=== PATIENT | male | born 1955 | race Caucasian/White ===

== ENCOUNTER 2020-02-08 12:36 | Outpatient (REF) | payer MEDICARE, SELFPAY ==
--- NOTE | 2020-02-08 | US_ITS ---
EXAMINATION: US EXTRACRANIAL CAROTID DUPLEX, BILATERAL CLINICAL INFORMATION: CVA COMPARISON: Previous carotid ultrasound July 2019, MRA of the neck July 2019 and CTA of the neck August 2019 TECHNIQUE: Real-time ultrasound and Doppler techniques (integrating B-mode 2-D vascular images, Doppler spectral analysis and color-flow Doppler imaging) were utilized to interrogate the extracranial carotid arteries, the vertebral arteries and proximal subclavian arteries bilaterally. The degree of stenosis is determined by criteria similar to NASCET. FINDINGS: Right Side: 1. There is mild to moderate atherosclerotic plaque seen in the bifurcation/proximal ICA region. 2. The common carotid artery PSV proximally is 127 cm/s and distally 72 cm/s. 3. The proximal internal carotid artery velocities are 104 cm/s systolic and 26 cm/s diastolic. 4. The proximal external carotid artery PSV is 175 cm/s. 5. The vertebral artery shows antegrade flow. 6. The subclavian artery waveforms are normal. Left Side: 1. There is severe atherosclerotic plaque seen in the bifurcation/proximal ICA region. 2. The common carotid artery PSV proximally is 132 cm/s and distally 74 cm/s. 3. The left ICA is occluded. 4. The proximal external carotid artery PSV is 155 cm/s with internalization or preserved diastolic flow. 5. The vertebral artery shows antegrade flow. 6. The subclavian artery waveforms are normal. US/US carotid duplex BI IMPRESSION: 1. RIGHT: Mild to moderate atherosclerotic plaque. 0-49% right ICA stenosis. 2. LEFT: Severe atherosclerotic plaque. The left ICA is occluded. 3. There is no change in the category severity of disease when compared to the previous study dated July and August 2019.
== END 2020-02-08 12:37 | disposition home or self-care (01) ==
LOC: HO.HMGCX 12:36
PROVIDERS: PCP Internal Medicine; Visit Provider Surgery Vascular Surgery
DX: Z86.73 Personal history of transient ischemic attack (TIA), and cerebral infarction without residual deficits (principal)
CPT/HCPCS: 93880

== ENCOUNTER → 2020-02-29 10:33 | Outpatient (BNVA) | payer MEDICARE, SELFPAY | PROVIDERS: PCP Internal Medicine; Visit Provider Surgery Vascular Surgery | DX: I65.23 Occlusion and stenosis of bilateral carotid arteries (principal) | CPT/HCPCS: Q3014 ==

== ENCOUNTER → 2020-06-21 20:16 | Outpatient (REF) | payer MEDICARE, SELFPAY | LOC: HO.SL 20:16 | PROVIDERS: PCP Internal Medicine; Visit Provider Internal Medicine | DX: G47.30 Sleep apnea, unspecified (principal) | CPT/HCPCS: 95811 ==

== ENCOUNTER 2020-06-22 06:13 | Emergency (ER) | payer MEDICARE, SELFPAY ==
[2020-06-22 07:47] VITALS: BP 138/76; PULSE 72; RESP 16; TEMP 37.1; O2SAT 98; BMI 27.3
[2020-06-22 08:54] VITALS: BP 134/78; PULSE 72; RESP 17; TEMP 36.6; O2SAT 98
[2020-06-22] MEDS: Lidocaine HCl 1 % MPF 5 ML VIAL INFILTRATI ×2 (09:05)
[2020-06-22] MEDS: Diphth,Pertus(ACell),Tet Adult 0.5 ML SYRINGE IM (09:08)
--- NOTE | 2020-06-22 09:09 | ED.SKABFB ---
HPI - Skin/Abscess/Foreign Bdy General Chief complaint: Skin/Abscess/Foreign Body Stated complaint: Finger infection Time Seen by Provider: 06/22/20 06:48 Source: patient Mode of arrival: ambulatory Limitations: no limitations History of Present Illness HPI narrative: 65-year-old male who presents emergency department for evaluation of a right index finger paronychial abscess. The patient states that he accidentally pricked his finger with a thorn from a peter harp. This occurred approximately 1 week prior pain. He states that he has gradually developed increased pain and swelling of the right index finger. He states that the tip of his index finger is slightly swollen as well and is painful. He denied any systemic symptoms such as fever, chills, nausea, vomiting, weakness or fatigue. The patient does not know when his last tetanus shot was given. Related Data Home Medications Medication Instructions Recorded Confirmed aspirin 81 mg tablet,delayed 81 mg PO DAILY 02/14/20 02/14/20 release atorvastatin 80 mg tablet 80 mg PO DAILY 02/14/20 02/14/20 clopidogrel 75 mg tablet 75 mg PO DAILY 02/14/20 02/14/20 flu vacc [id number](65yr up)-PF 240 IM 02/14/20 02/14/20 mcg/0.7 mL intramuscular syringe lisinopril 20 1 tab PO DAILY 02/14/20 02/14/20 mg-hydrochlorothiazide 25 mg tablet multivitamin 1 tab PO DAILY 02/14/20 02/14/20 omeprazole 40 mg capsule,delayed 40 mg PO BID 02/14/20 02/14/20 release turmeric 400 mg capsule mg PO 02/14/20 02/14/20 Previous Rx's Medication Instructions Recorded lisinopril 20 mg tablet 20 mg PO DAILY #90 tab 01/03/20 ammonium lactate 5 % lotion 1 appl TOPICAL BID #226 g 02/14/20 amlodipine 10 mg tablet 10 mg PO DAILY #90 tab 03/06/20 cephalexin 500 mg PO QID #20 tab 06/22/20 Allergies Allergy/AdvReac Type Severity Reaction Status Date / Time amoxicillin [AMOXICILLIN] Allergy Unknown RASH Verified 02/29/20 10:36 Review of Systems Review of Systems: Yes all other systems are reviewed and are negative PMFSH Past Medical History Source: unable to obtain Medical History Barretts esophagus CVA (cerebral vascular accident) Encounter for screening for lung cancer ETOH abuse GERD (gastroesophageal reflux disease) HTN (hypertension) Hyperlipemia Normal colonoscopy Sleep apnea TIA (transient ischemic attack) Tobacco consumption Surgical History No pertinent past surgical history Family History Family History Father No problems noted. Mother No problems noted. Social History Social History Alcohol intake: never Smoking Status: Current every day smoker Tobacco Type: Pipe Advance Directives: No Physical Exam Vital Signs: Vital Signs: Last Vital Signs Temp 97.9 F 06/22/20 08:54 Pulse 72 06/22/20 08:54 Resp 17 06/22/20 08:54 BP 134/78 06/22/20 08:54 Pulse Ox 98 06/22/20 08:54 Body Mass Index 27.3 Const: General: cooperative and healthy appearing Nutritional Appearance: well nourished Orientation/consciousness: oriented to person Limitations: no limitations HENMT: Head: Yes normal to inspection Skin: Other: The patient has a paronychia sitting all abscess of the right index finger with increased swelling to the radial aspect of the paronychia him, the swelling is flocculent, the overlying skin is erythematous and warm to the touch, his fingers neurovascularly intact. Neuro: General: oriented to person Course Course Course Narrative: 65-year-old male who presents emergency department for evaluation of apparent abscess to his right index finger. The abscess was incised, drained and packed by me. The patient was given a Tdap vaccination IM here in the emergency department. Wound culture was obtained. Patient was started on Keflex 500 mg 4 times a day for 5 days. He was given printed and verbal instructions and discharged home. Procedures Procedure Narrative Procedure Narrative: Procedure: Incision, drainage and packing, right index finger paronychial abscess I discussed the procedure with the patient and he did give me informed verbal consent. The right index finger was prepped with Betadine. The right index finger was anesthetized using 1% lidocaine digital block, 8 cc of lidocaine was injected. Using a 11, I incised the abscess and approximately 1 cc of green purulent material was expressed from the incision. The abscess pocket was explored with a hemostat, no foreign bodies were found, adhesions within the pocket were broken down with a hemostat. The abscess pocket was packed with quarter-inch iodoform gauze. A wound culture was obtained. The wound was dressed with sterile gauze and a Kerlix. The patient tolerated the procedure well. Discharge Plan Discharge Clinical Impression: Paronychia of finger of right hand, Encounter for incision and drainage procedure Patient Disposition: Home, Self-Care Instructions: Abscess Incision and Drainage (DC) Additional Instructions: You had an abscess around your nail. I incised, drained and packed the wound. Leave the gauze dressing on for 24 hours. After 24 hours remove the gauze dressing and remove the pack which is in the wound. The packing looks like a thick piece of string that you can just pull out. After you remove the dressing, apply bacitracin to the wound and the wound covered with a gauze dressing. Take Keflex (cephalexin) 500 mg pills, 1 pill 4 times a day for 5 days. Take Tylenol (acetaminophen) 500 mg pills, 2 pills every 4 to 6 hours as needed for pain. Follow-up with your doctor in 2 days. Please return to the emergency department if your symptoms get worse or if you develop any symptoms that are concerning to you. Prescriptions: New cephalexin 500 mg tablet 500 mg PO QID Qty: 20 RF: 0 No Action lisinopril 20 mg tablet 20 mg PO DAILY Qty: 90 RF: 3 amlodipine 10 mg tablet 10 mg PO DAILY Qty: 90 RF: 3 atorvastatin 80 mg tablet 80 mg PO DAILY RF: 0 clopidogrel 75 mg tablet 75 mg PO DAILY RF: 0 Fluzone HighDose Quad 20-21 PF 240 mcg/0.7 mL syringe IM RF: 0 omeprazole 40 mg capsule,delayed release(DR/EC) 40 mg PO BID RF: 0 lisinopril-hydrochlorothiazide 20-25 mg tablet 1 tab PO DAILY RF: 0 aspirin 81 mg tablet,delayed release (DR/EC) 81 mg PO DAILY RF: 0 turmeric 400 mg capsule PO RF: 0 multivitamin Tablet 1 tab PO DAILY RF: 0 Lac-Hydrin Five 5 % lotion 1 appl topical BID Qty: 226 RF: 2
== END 2020-06-22 09:36 | disposition home or self-care (01) ==
PROVIDERS: Emergency Provider Emergency Medicine Emergency Medical Services; PCP Internal Medicine
DX: L03.011 Cellulitis of right finger (principal); L02.511 Cutaneous abscess of right hand; F17.200 Nicotine dependence, unspecified, uncomplicated; Z71.6 Tobacco abuse counseling; Z79.899 Other long term (current) drug therapy
CPT/HCPCS: 26010; 87071; 87077; 87186; 87205; 90471; 90715; 99283; 99284

== ENCOUNTER 2020-12-27 06:29 | Outpatient (REF) | payer MEDICARE, SELFPAY ==
[2020-12-27 11:32] LABS: Appearance Urine CLEAR; Color Urine YELLOW; Glucose Urine UA NEG (NEG); Leukocyte Esterase Urine NEG (NEG); Nitrite Urine NEG (NEG); Urine Blood NEG (NEG); Urine Ketones NEG (NEG); Urine Protein NEG (NEG-TRACE)
[2020-12-27 11:44] LABS: RBC Urine 0-2 /HPF (0); Squamous Epithelial Cell Urine TRACE /LPF; WBC Urine 0-2 /HPF (0-4)
[2020-12-27 11:55] LABS: Hematocrit 43.8 % (42-52); Hemoglobin 14.4 g/dl (14.0-18.0); Mean Corpuscular HGB Conc 32.9 g/dl (31.0-36.0); Mean Corpuscular Hemoglobin 32.8 pg (27.0-33.0); Mean Corpuscular Volume 99.8 fL (80-98); Mean Platelet Volume 11.8 fL (9.4-12.4); Platelet Count 264 X10*3/uL (160-400); Red Blood Count 4.39 X10*6/uL (4.60-5.80); Red Cell Distribution Width 12.3 % (11.0-16.0)
[2020-12-27 12:06] LABS: Alanine Aminotransferase 34 U/L (0-40); Alkaline Phosphatase 95 U/L (39-117); Anion Gap 13 (12-20); Aspartate Amino Transferase 27 U/L (5-37); Blood Urea Nitrogen 16 mg/dL (9-16); Calcium 9.5 mg/dL (8.4-10.2); Carbon Dioxide 28 mmol/L (22-29); Chloride 105 mmol/L (96-108); Cholesterol 124 mg/dL; Estimated Glomerular Filt Rate > 60; Glucose Fasting 90 mg/dL (60-99); HDL Cholesterol 33 mg/dL; LDL Cholesterol Calculated 75 mg/dl; Potassium 4.1 mmol/L (3.3-5.1); Sodium 142 mmol/L (135-145); Total Protein 6.8 g/dL (6.5-8.0); Triglycerides 80 mg/dL
[2020-12-27 12:15] LABS: Prostate Specific Antigen Scr 0.27 ng/mL (<0.05-4.0)
== END 2020-12-27 06:30 | disposition home or self-care (01) ==
LOC: HO.HMGCLDS 06:29
PROVIDERS: PCP Internal Medicine; Visit Provider Internal Medicine
DX: G45.9 Transient cerebral ischemic attack, unspecified (principal); G47.30 Sleep apnea, unspecified; I10 Essential (primary) hypertension; E78.5 Hyperlipidemia, unspecified
CPT/HCPCS: 36415; 80053; 80061; 81001; 84153; 85027

== ENCOUNTER 2021-02-14 14:00 | Outpatient (RCR) | payer MEDICARE, SELFPAY ==
--- NOTE | 2021-01-22 17:19 | MHC.PT.EP ---
[facility] [place] Office [place] Office [place] Office [address] [phone] F: [phone] F: [phone] F: [phone] F: [phone] Physical Therapy Plan of Care Date of Evaluation: Date of Surgery: Diagnosis: L shoulder pain. Assessment: Pt is a 66 y/o male referred to PT for PT for L shoulder pain who presents with L shoulder dysfunction resulting in decreased tolerance and ability for reaching high shelves, reaching his back for hygiene and dressing, as well as fine motor activities secondary to increased L UE tone, decreased L UE sensation, decreased L UE ROM and strength, and pain. Pt is deemed an appropriate candidate to receive skilled PT in order to address his physical limitations to improve his functional ability. Frequency and Duration: The patient will be seen 1 x / wk x 5 wks. Short Term Goals: Initiate HEP. 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 Pt will be able to place objects on high shelf with L UE with managed Sx. Pt will be able to reach his back for hygiene and dressing. Pt will improve his L shoulder functional IR to at least L1, initial: inferior sacrum. Treatment Plan: Modalities to reduce pain, spasms and effusion. Manual therapy to restore motion and function. Therapeutic exercise to improve strength and flexibility. Neuromuscular re-education for posture and balance. Therapeutic activities to return to functional activities of daily living. Electronically signed by: Nick Melgar PT. Please sign and return to therapist. Thank you for your referral.
--- NOTE | 2021-02-14 15:38 | MHC.PT.DC ---
[facility] [place] Office [place] Office [place] Office [address] Zhane Swan [address] [phone] F: [phone] F: [phone] F: [phone] F: [phone] Physical Therapy Discharge Report Diagnosis: L shoulder pain. Date of Surgery: Date of Evaluation: 01/22/21 Date of Discharge: 02/14/21 Treatments to Date: 3 Cancellations to Date: No Shows to Date: Discharge Status: Achieved Goals Improved Function Independent with HEP Discharge Summary: Nicholas has been an active participant in his therapy in and out of the clinic and is requesting DC today as he reports with his new exercises he has already met his goals and has self management ideas to continue and is motivated for gym activity. Electronically signed by: Nick Melgar PT. Please sign and return to therapist. Thank you for your referral.
== END 2021-02-14 15:38 | disposition home or self-care (01) ==
LOC: HO.PTCHIC 14:00
PROVIDERS: PCP Internal Medicine; Visit Provider Internal Medicine
DX: M25.512 Pain in left shoulder (principal)
CPT/HCPCS: 97110; 97112; 97162

== ENCOUNTER 2021-02-19 12:27 | Outpatient (REF) | payer MEDICARE, SELFPAY ==
--- NOTE | ~2021-02-19 | US_ITS ---
EXAMINATION: US EXTRACRANIAL CAROTID DUPLEX, BILATERAL CLINICAL INFORMATION: This is a 66-year-old male with a history of carotid occlusion. CVA. TIA. COMPARISON: Comparison is made to previous study dated 02/08/2020 which demonstrated 0-49% right internal carotid artery stenosis and left internal carotid artery occlusion. TECHNIQUE: Real-time ultrasound and Doppler techniques (integrating B-mode 2-D vascular images, Doppler spectral analysis and color-flow Doppler imaging) were utilized to interrogate the extracranial carotid arteries, the vertebral arteries and proximal subclavian arteries bilaterally. The degree of stenosis is determined by criteria similar to NASCET. FINDINGS: Right Side: 1. There is moderate atherosclerotic plaque seen in the bifurcation/proximal ICA region. 2. The common carotid artery PSV proximally is 175 cm/s and distally 107 cm/s. 3. The proximal internal carotid artery velocities are 127 cm/s systolic and 34 cm/s diastolic. 4. The proximal external carotid artery PSV is 162 cm/s. 5. The vertebral artery shows antegrade flow. 6. The subclavian artery waveforms are stenotic with elevated velocities of 280 cm/s. This appears to have progressed when compared to the previous study dated 02/08/2020. Left Side: 1. There is moderate atherosclerotic plaque seen in the bifurcation/proximal ICA region. 2. The common carotid artery PSV proximally is 120 cm/s and distally 75 cm/s. 3. The proximal internal carotid artery is occluded. 4. The proximal external carotid artery PSV is 164 cm/s. 5. The vertebral artery shows antegrade flow. 6. The subclavian artery waveforms are stenotic with elevated velocities of 231 cm/s. This appears to have progressed when compared to the previous study dated 02/08/2020. An arrhythmia was noted during the ultrasound duplex portion. This would be best evaluated with an EKG. US/US carotid duplex BI IMPRESSION: 1. RIGHT: Moderate, hemodynamically significant stenosis of the proximal right internal carotid artery corresponding to a 50-79% stenosis by velocity criteria. The category severity of disease appears to have progressed when compared to previous examination dated 02/08/2020. 2. LEFT: The left internal carotid artery is occluded. This was seen previously and appears unchanged. 3. There are bilateral subclavian artery stenoses which appear new when compared to the previous study dated 02/08/2020. However, the vertebral arteries remain antegrade bilaterally.
== END 2021-02-19 12:28 | disposition home or self-care (01) ==
LOC: HO.HMGCX 12:27
PROVIDERS: PCP Internal Medicine; Visit Provider Surgery Vascular Surgery
DX: I65.23 Occlusion and stenosis of bilateral carotid arteries (principal)
CPT/HCPCS: 93880

== ENCOUNTER → 2021-02-27 10:30 | Outpatient (BNVA) | payer MEDICARE, SELFPAY | PROVIDERS: PCP Internal Medicine; Visit Provider Surgery Vascular Surgery | DX: I65.23 Occlusion and stenosis of bilateral carotid arteries (principal) | CPT/HCPCS: 99212 ==

== ENCOUNTER 2021-12-19 13:57 | Outpatient (REF) | payer MEDICARE, SELFPAY ==
[2021-12-19 16:53] LABS: Hematocrit 41.4 % (42.0-52.0); Hemoglobin 14.1 g/dl (14.0-18.0); Mean Corpuscular HGB Conc 34.1 g/dl (31.0-36.0); Mean Corpuscular Hemoglobin 33.7 pg (27.0-33.0); Mean Corpuscular Volume 98.8 fL (80.0-98.0); Mean Platelet Volume 10.6 fL (9.4-12.4); Platelet Count 259 X10*3/uL (160-400); Red Blood Count 4.19 X10*6/uL (4.60-5.80); Red Cell Distribution Width 12.3 % (11.0-16.0); White Blood Count 10.9 X10*3/uL (4.8-10.8)
[2021-12-19 17:07] LABS: Alanine Aminotransferase 25 U/L (0-40); Albumin Level 4.2 g/dL (3.5-5.0); Alkaline Phosphatase 100 U/L (39-117); Anion Gap 19 (12-20); Aspartate Amino Transferase 31 U/L (5-37); Bilirubin Total 0.8 mg/dL (0.0-1.0); Blood Urea Nitrogen 24 mg/dL (9-16); Calcium 9.5 mg/dL (8.4-10.2); Carbon Dioxide 24 mmol/L (22-29); Chloride 102 mmol/L (96-108); Cholesterol 139 mg/dL; Estimated Glomerular Filt Rate 49; Glucose Fasting 74 mg/dL (60-99); HDL Cholesterol 40 mg/dL; LDL Cholesterol Calculated 83 mg/dl; Potassium 4.3 mmol/L (3.3-5.1); Sodium 141 mmol/L (135-145); Triglycerides 82 mg/dL
== END 2021-12-19 13:58 | disposition home or self-care (01) ==
LOC: HO.HMGCLDS 13:57
PROVIDERS: PCP Internal Medicine; Visit Provider Internal Medicine
DX: E78.5 Hyperlipidemia, unspecified (principal); I10 Essential (primary) hypertension
CPT/HCPCS: 36415; 80053; 80061; 85027

== ENCOUNTER 2022-01-02 09:25 | Outpatient (REF) | payer MEDICARE, SELFPAY ==
[2022-01-02 11:31] LABS: Appearance Urine Clear; Color Urine Dark Yellow; Glucose Urine UA Negative (Negative); Leukocyte Esterase Urine Negative (Negative); Nitrite Urine Negative (Negative); PH 5.5 (5.0-9.0); Specific Gravity - Urine 1.015 (1.005-1.025); Urine Blood Negative (Negative); Urine Ketones Trace mg/dL (Negative); Urine Protein Negative (Neg-Trace)
[2022-01-02 11:40] LABS: Bacteria Urine None Seen (None Seen); Hyaline Casts Urine 0-2 /LPF (0-2); RBC Urine 0-2 /HPF (0-2); Squamous Epithelial Cell Urine 0-2 /HPF (0-2); WBC Urine 0-5 /HPF (0-5)
[2022-01-02 12:00] LABS: Anion Gap 14 (12-20); Blood Urea Nitrogen 18 mg/dL (9-16); Calcium 9.6 mg/dL (8.4-10.2); Carbon Dioxide 29 mmol/L (22-29); Chloride 103 mmol/L (96-108); Estimated Glomerular Filt Rate 52; Glucose Random 92 mg/dL (60-115); Potassium 4.4 mmol/L (3.3-5.1); Sodium 142 mmol/L (135-145)
== END 2022-01-02 09:26 | disposition home or self-care (01) ==
LOC: HO.HMGCLDS 09:25
PROVIDERS: PCP Internal Medicine; Visit Provider Internal Medicine
DX: E78.5 Hyperlipidemia, unspecified (principal); I10 Essential (primary) hypertension
CPT/HCPCS: 36415; 80048; 81001

== ENCOUNTER 2022-02-14 09:39 | Outpatient (REF) | payer MEDICARE, SELFPAY ==
--- NOTE | ~2022-02-14 | US_ITS ---
EXAMINATION: US EXTRACRANIAL CAROTID DUPLEX, BILATERAL CLINICAL INFORMATION: Left ICA occlusion COMPARISON: Carotid duplex on 02/19/2021 TECHNIQUE: Real-time ultrasound and Doppler techniques (integrating B-mode 2-D vascular images, Doppler spectral analysis and color-flow Doppler imaging) were utilized to interrogate the extracranial carotid arteries, the vertebral arteries and proximal subclavian arteries bilaterally. The degree of stenosis is determined by criteria similar to NASCET. FINDINGS: Right Side: 1. There is mild atherosclerotic plaque seen in the bifurcation/proximal ICA region. 2. The common carotid artery PSV proximally is 123 cm/s and distally 108 cm/s. 3. The proximal internal carotid artery velocities are 117 cm/s systolic and 24 cm/s diastolic. 4. The proximal external carotid artery PSV is 190 cm/s. 5. The vertebral artery shows antegrade flow. 6. The subclavian artery waveforms are normal. Left Side: 1. There is significant atherosclerotic plaque seen in the bifurcation/proximal ICA region. 2. The common carotid artery PSV proximally is 123 cm/s and distally 88 cm/s. 3. The proximal internal carotid artery is occluded. 4. The proximal external carotid artery PSV is 182 cm/s. 5. The vertebral artery shows antegrade flow. 6. The subclavian artery waveforms are normal. US/US carotid duplex BI IMPRESSION: 1. RIGHT: Minimal, non-hemodynamically significant stenosis of the proximal right internal carotid artery corresponding to a 0-49% stenosis by velocity criteria. 2. LEFT: Known occlusion of the left internal carotid artery. 3. There is no change in the category severity of disease of the internal carotid arteries when compared to the previous study dated 02/19/2021. 4. Velocities in the bilateral subclavian arteries are normal on this exam (elevated on the prior exam)
== END 2022-02-14 09:40 | disposition home or self-care (01) ==
LOC: HO.HMGCX 09:39
PROVIDERS: PCP Internal Medicine; Visit Provider Surgery Vascular Surgery
DX: I65.23 Occlusion and stenosis of bilateral carotid arteries (principal)
CPT/HCPCS: 93880

== ENCOUNTER → 2022-02-19 12:58 | Outpatient (BNVA) | payer MEDICARE, SELFPAY | PROVIDERS: PCP Internal Medicine; Visit Provider Surgery Vascular Surgery | DX: I65.23 Occlusion and stenosis of bilateral carotid arteries (principal); M25.512 Pain in left shoulder | CPT/HCPCS: 99212 ==

== ENCOUNTER 2023-02-17 08:43 | Outpatient (REF) | payer MEDICARE, SELFPAY ==
--- NOTE | ~2023-02-17 | US_ITS ---
EXAMINATION: US EXTRACRANIAL CAROTID DUPLEX, BILATERAL CLINICAL INFORMATION: Occlusion and stenosis of bilateral carotid arteries. COMPARISON: Carotid ultrasound 02/14/2022, 02/19/2021, 02/08/2020. TECHNIQUE: Real-time ultrasound and Doppler techniques (integrating B-mode 2-D vascular images, Doppler spectral analysis and color-flow Doppler imaging) were utilized to interrogate the extracranial carotid arteries, the vertebral arteries and proximal subclavian arteries bilaterally. The degree of stenosis is determined by criteria similar to NASCET. FINDINGS: Right Side: 1. There is mild atherosclerotic plaque seen in the bifurcation/proximal ICA region. 2. The common carotid artery PSV proximally is 105 cm/s and distally 105 cm/s. 3. The proximal internal carotid artery velocities are 146 cm/s systolic and 42 cm/s diastolic. 4. The proximal external carotid artery PSV is 156 cm/s. 5. The vertebral artery shows antegrade flow. 6. The subclavian artery waveforms are normal. Left Side: 1. There is severe atherosclerotic plaque seen in the bifurcation/proximal ICA region. 2. The common carotid artery PSV proximally is 113 cm/s and distally 66 cm/s. 3. The internal carotid artery is occluded. 4. The proximal external carotid artery PSV is 143 cm/s. 5. The vertebral artery shows antegrade flow. 6. The subclavian artery waveforms are normal. US/US carotid duplex BI IMPRESSION: 1. RIGHT: Elevated peak systolic velocity of 146 cm/s in the proximal internal carotid artery. In the setting of known contralateral internal carotid artery occlusion and using a threshold of 140 cm/s, this is consistent with a 50-79% stenosis. On the previous exams this velocity has ranged between 104-127 cm/s. 2. LEFT: Chronically occluded.
== END 2023-02-17 08:44 | disposition home or self-care (01) ==
LOC: HO.HMGCX 08:43
PROVIDERS: PCP Internal Medicine; Visit Provider Surgery Vascular Surgery
DX: I65.23 Occlusion and stenosis of bilateral carotid arteries (principal)
CPT/HCPCS: 93880

== ENCOUNTER 2023-03-11 08:44 | Outpatient (AMB) | payer MEDICARE, SELFPAY ==
--- NOTE | 2023-03-11 08:58 | A.OFFVIS_ITS ---
Intake Vital Signs 03/11/23 09:01 03/11/23 09:09 Height 5 ft 9 in Weight 185 lb BMI 27.3 BP 128/66 150/70 H Blood Pressure Location Lt brachial Rt brachial Position Sitting Sitting Intake Visit Reasons: fu carotid US Intake Note: 1 year follow up carotid stenosis s/p carotid US 02/17/2023, has hx of stroke and known occlusion. Pt states no vision issues does get lose of balance Accompanied by: Self / Same As Patient Allergies amoxicillin [AMOXICILLIN] Allergy (Unknown, Verified 03/11/23 09:05) RASH HPI fu carotid US HPI Details Very pleasant 68-year-old gentleman presents for follow-up regarding carotid stenosis. He reports that he is progressively getting better and actually was a good year from last year. He reports that he is functioning better every day since his stroke and at the current time has been quite active in doing household products. He has replaced window. 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 Of note he does continue to smoke about 5 cigars daily. He now presents for carotid surveillance ultrasound. [facility] Medical History Anxiety Shoulder pain, left Encounter for screening for lung cancer ETOH abuse Barretts esophagus Normal colonoscopy Tobacco consumption Sleep apnea Hyperlipemia CVA (cerebral vascular accident) TIA (transient ischemic attack) GERD (gastroesophageal reflux disease) HTN (hypertension) Surgical History No pertinent past surgical history Family History Father No problems noted. Mother No problems noted. Social History Housing: House Alcohol intake: never Patient Tobacco Use Status: Current everyday Tobacco user Tobacco use type: Cigar e-Cigarette/Vaping Use: Never Used Current occupational status: retired Cognitive needs: No Hearing needs: No Vision needs: Yes Review of Systems Const All systems reviewed & are unremarkable except as noted in HPI and below Reports no additional complaints ENT Reports Normal hearing present Card Denies chest pain, Denies chest pain at rest, Denies chest pain with activity and Denies pedal edema Resp Denies cough GI Denies abdominal pain Musc Denies abnormal gait, Denies muscle cramps and Denies radiating pain into limb Skin/Breast Denies skin ulcer and Denies wounds Neuro Reports Normal hearing present and Denies abnormal gait Psych Reports no additional complaints Physical Exam Vital Signs: Last Vital Signs BP 150/70 H 03/11/23 09:09 BMI result Body Mass Index 27.3 Const General: cooperative, healthy appearing and comfortable Orientation/consciousness: oriented to person, oriented to place and oriented to time HEENT Head: Yes normal to inspection Neck Neck: Yes normal visual inspection Carotids: no bruits Chest Chest palpation & inspection: normal inspection of the chest Resp Effort & Inspection: normal respiratory effort and able to speak in complete sentences Auscultation: clear to auscultation bilaterally, no crackles, no rales, no rhonchi and no wheezes Cardio Rate: regular rate Rhythm: regular rhythm Heart sounds: S1 normal heart sound present and S2 normal heart sound present Bruits: no carotid bruits Peripheral pulses: Peripheral pulses 2+ throughout GI Inspection: Yes normal to inspection Skin Wounds: no wounds Hair: normal Neuro General: oriented to person, oriented to place and oriented to time Cranial nerves: Yes CN's II-XII intact bilaterally and Yes Normal hearing present Cognition (Neuro): normal cognition Motor exam (neuro): 5/5 motor strength present throughout Extrem Other: venous exam: No significant superficial varicosities or spider telangiectasias, minimal edema General: No clubbing, No cyanosis and No edema Psych Appearance: grossly normal Mental Status: mental status grossly normal Speech and movement: Normal speech and movement present Results Reviewed Results Reviewed: Carotid testing dated 02/17/2023 demonstrates right side 50 to 79% stenosis with a peak systolic velocity of 146. Left side known occlusion. Based on velocities I believe that the right side is closer to the 50% side. Written report and images were reviewed Assessment & Plan Assessment & Plan (1) Carotid stenosis, bilateral: Code(s): I65.23 - Occlusion and stenosis of bilateral carotid arteries Plan: In short patient has asymptomatic carotid disease. We have reviewed signs and symptoms of a stroke. We also discussed risk factor modification inclusive a healthy diet low in cholesterol. The patient will follow up with us with surveillance ultrasound of the carotids 1 year. Should there be any changes or signs or symptoms of a stroke we will be happy to see them back sooner. Thank you for allowing us to participate in this patient's care. If there are any questions or concerns please do not hesitate to contact us. Orders: Orders US carotid duplex BI 364 Days I65.23 - Occlusion and stenosis of bilateral carotid arteries Coding Level of Care Code Est Pt Level 4 (86436) Diagnoses Carotid stenosis, bilateral I65.23
[2023-03-11 09:01] VITALS: BP 128/66; BMI 27.3
[2023-03-11 09:09] VITALS: BP 150/70
== END 2023-03-11 09:27 | disposition home or self-care (01) ==
PROVIDERS: PCP Internal Medicine; Visit Provider Surgery Vascular Surgery
DX: I65.23 Occlusion and stenosis of bilateral carotid arteries (principal)
CPT/HCPCS: 99213

== ENCOUNTER → 2023-03-11 08:44 | Outpatient (BNVA) | payer MEDICARE, SELFPAY | PROVIDERS: PCP Internal Medicine; Visit Provider Surgery Vascular Surgery | DX: I65.23 Occlusion and stenosis of bilateral carotid arteries (principal) | CPT/HCPCS: 99212 ==

== ENCOUNTER 2024-03-08 10:11 | Outpatient (REF) | payer MEDICARE, SELFPAY ==
--- NOTE | ~2024-03-08 | US_ITS ---
CLINICAL HISTORY: I65.23 - Occlusion and stenosis of bilateral carotid arteries US Bilateral Carotid Duplex Comparison: None Findings: Peak systolic velocities: Right CCA: 119 cm/s. Right ICA: 142 cm/s. ICA/CCA ratio: 1.2 Right ECA: Unremarkable. Right vertebral artery flow antegrade. Left CCA: 154 cm/s. Left ICA: Occluded cm/s. ICA/CCA ratio: N/a Left ECA: Not visualized Left vertebral artery flow antegrade. IMPRESSION: Known left ICA occlusion. 50-79% stenosis involving the proximal right ICA. This document has been electronically signed by: Rad Mccullough MD on 03/08/2024 12:46:49
== END 2024-03-08 10:12 | disposition home or self-care (01) ==
LOC: HO.HMGCX 10:11
PROVIDERS: Visit Provider Surgery Vascular Surgery
DX: I65.23 Occlusion and stenosis of bilateral carotid arteries (principal)
CPT/HCPCS: 93880

== ENCOUNTER → 2024-03-08 10:12 | Outpatient (BNV) | payer MEDICARE, SELFPAY | PROVIDERS: Visit Provider Radiology Vascular & Interventional Radiology | DX: I65.23 Occlusion and stenosis of bilateral carotid arteries (principal) | CPT/HCPCS: 93880 ==

== ENCOUNTER 2024-03-23 14:15 | Outpatient (AMB) | payer MEDICARE, SELFPAY ==
--- NOTE | 2024-03-23 14:17 | A.OFFVIS_ITS ---
Intake Visit Reasons: 1yr follow up s/p Carotid US 03/09/24 Intake Note: Patient presents for 1 year carotid US follow up . US performed on 03/09/24. No complaints. Accompanied by: Self / Same As Patient Allergies amoxicillin [AMOXICILLIN] Allergy (Unknown, Verified 03/23/24 14:19) RASH HPI HPI 1yr follow up s/p Carotid US 03/09/24: Details: Very pleasant 69-year-old gentleman presents for routine surveillance follow-up regarding carotids. He has a prior history of stroke and appears to have progressively done extremely well since that time. He is functioning well doing everyday chores. He has minimal residual deficits and reports that he can function around the house with no difficulty. Continues to smoke about 4-5 cigars daily. He now presents for routine follow-up. [facility] Medical History Anxiety Shoulder pain, left Encounter for screening for lung cancer ETOH abuse Barretts esophagus Normal colonoscopy Tobacco consumption Sleep apnea Hyperlipemia CVA (cerebral vascular accident) TIA (transient ischemic attack) GERD (gastroesophageal reflux disease) HTN (hypertension) Surgical History No pertinent past surgical history Family History Father No problems noted. Mother No problems noted. Social History Housing: House Alcohol intake: never Patient Tobacco Use Status: Current everyday Tobacco user Tobacco use type: Cigar e-Cigarette/Vaping Use: Never Used Current occupational status: retired Cognitive needs: No Hearing needs: No Vision needs: Yes Review of Systems Const All systems reviewed & are unremarkable except as noted in HPI and below Reports no additional complaints ENT Reports Normal hearing present Card Denies chest pain, Denies chest pain at rest, Denies chest pain with activity and Denies pedal edema Resp Denies cough GI Denies abdominal pain Musc Denies abnormal gait, Denies muscle cramps and Denies radiating pain into limb Skin/Breast Denies skin ulcer and Denies wounds Neuro Reports Normal hearing present and Denies abnormal gait Psych Reports no additional complaints Physical Exam Const General: cooperative, healthy appearing and comfortable Orientation/consciousness: oriented to person, oriented to place and oriented to time HEENT Head: Yes normal to inspection Neck Neck: Yes normal visual inspection Carotids: no bruits Chest Chest palpation & inspection: normal inspection of the chest Resp Effort & Inspection: normal respiratory effort and able to speak in complete sentences Auscultation: clear to auscultation bilaterally, no crackles, no rales, no rhonchi and no wheezes Cardio Rate: regular rate Rhythm: regular rhythm Heart sounds: S1 normal heart sound present and S2 normal heart sound present Bruits: no carotid bruits Peripheral pulses: Peripheral pulses 2+ throughout GI Inspection: Yes normal to inspection Skin Wounds: no wounds Hair: normal Neuro General: oriented to person, oriented to place and oriented to time Cranial nerves: Yes CN's II-XII intact bilaterally and Yes Normal hearing present Cognition (Neuro): normal cognition Motor exam (neuro): 5/5 motor strength present throughout Extrem Other: venous exam: No significant superficial varicosities or spider telangiectasias, minimal edema General: No clubbing, No cyanosis and No edema Psych Appearance: grossly normal Mental Status: mental status grossly normal Speech and movement: Normal speech and movement present Results Reviewed Results Reviewed: Noninvasive carotid testing dated 03/08/2024 demonstrates right side 50-79% stenosis with a peak systolic of 142. Left side chronic occlusion. This is very similar to the study from 02/17/2023 where the peak systolic at that time was 01:46. No significant change in study. Written report and images of both were reviewed. Assessment & Plan Assessment & Plan (1) Carotid stenosis, bilateral: Code(s): I65.23 - Occlusion and stenosis of bilateral carotid arteries Category: Medical Plan: In short patient has asymptomatic carotid disease. We have reviewed signs and symptoms of a stroke. We also discussed risk factor modification inclusive a healthy diet low in cholesterol. The patient will follow up with us with surveillance ultrasound of the carotids 1 year. Should there be any changes or signs or symptoms of a stroke we will be happy to see them back sooner. Thank you for allowing us to participate in this patient's care. If there are any questions or concerns please do not hesitate to contact us. In addition we had an extensive discussion regarding hyperbaric oxygen and carotid disease. I do not really see any indication for this. He has residual deficits and it is more for the acute stroke. He was quite interested in this. I am unsure if insurance would even cover this. I did request if he was able to find a center I would be happy to send a referral. Once again I do believe this will be extremely low yield at this point and may not even be covered by insurance. Thank you for allowing us to participate in his care. Orders: Orders US carotid duplex BI 1 Year I65.23 - Occlusion and stenosis of bilateral carotid arteries Coding Level of Care Code Est Pt Level 4 (38128) Complex EM visit Add On G2211 Diagnoses Carotid stenosis, bilateral I65.23
== END 2024-03-23 14:52 | disposition home or self-care (01) ==
PROVIDERS: PCP Internal Medicine; Visit Provider Surgery Vascular Surgery
DX: I65.23 Occlusion and stenosis of bilateral carotid arteries (principal)
CPT/HCPCS: 99214; G2211

== ENCOUNTER → 2024-03-23 14:15 | Outpatient (BNVA) | payer MEDICARE, SELFPAY | PROVIDERS: PCP Internal Medicine; Visit Provider Surgery Vascular Surgery | DX: I65.23 Occlusion and stenosis of bilateral carotid arteries (principal) | CPT/HCPCS: 99212 ==

== ENCOUNTER 2024-07-29 13:55 | Outpatient (REF) | payer MEDICARE, SELFPAY ==
--- OUTSIDE RECORDS SUMMARY | 2024-07-29 14:02 | XMS_ITS | Clinical Summary ---
Author Organization [facility] Address [address] [place] [phone] Phone Care Team Providers Care Pulp Beater Name Role Phone Rashad Daugherty PA-C Primary Care Provider [phone] Allergies Active Allergy Reactions Criticality Noted Date Comments Amoxicillin 01/15/2024 Penicillins 01/15/2024 Medications amLODIPine (NORVASC) 10 MG tablet Take 10 mg by mouth 1 (one) time each day 12/22/2023 Active atorvastatin (LIPITOR) 20 MG tablet Take 20 mg by mouth every night 01/05/2024 Active lisinopril 40 MG tablet Take 40 mg by mouth 1 (one) time each day 12/11/2023 Active aspirin (ST AMY) 81 MG EC tablet Take 81 mg by mouth 1 (one) time each day Active [place]-3 Fatty Acids (FISH OIL ADULT GUMMIES PO) Take by mouth Active Multiple Vitamin (multivitamin) capsule Take 1 capsule by mouth 1 (one) time each day Active Misc Natural Products (YumVs Beet Root-Tart Pimentel) 250-0.5 MG chewable tablet Chew Active Turmeric (QC TUMERIC COMPLEX PO) Take by mouth Active Dapagliflozin Propanediol 5 MG tablet TAKE 1 TABLET BY MOUTH ONCE DAILY IN THE MORNING 30 tablet 5 02/13/2024 Active Active Problems Problem Noted Date Diagnosed Date Gastroesophageal reflux disease 01/15/2024 Hyperlipidemia 01/15/2024 Essential (primary) hypertension 01/15/2024 Overweight 01/15/2024 Cerebrovascular accident 01/15/2024 Carotid artery stenosis 01/15/2024 Encounters Date Type Department Care Team Description 07/29/2024 Office Communication [facility] [address] [place] [phone] Karen Rodriguez 05/04/2024 Refill [facility] [address] [phone] Alexander Rosario from Last 3 Months Social History Tobacco Use Types Packs/Day Years Used Date Smoking Tobacco: Never Assessed Sex and Gender Information Value Date Recorded Sex Assigned at Not on file Legal Sex Male 6:24 PM EDT Gender Identity Not on file Sexual Orientation Not on file Last Filed Vital Signs Vital Sign Reading Time Taken Comments Blood Pressure 138/60 02/12/2024 1:47 PM EST Pulse 66 02/12/2024 1:47 PM EST Temperature - - Respiratory Rate - - Oxygen Saturation - - Inhaled Oxygen Concentration - - Weight 85.3 kg (188 lb) 02/12/2024 1:47 PM EST Height - - Body Mass Index - - Plan of Treatment Upcoming Encounters Date Type Department Care Team (Late st Contact Info) Description 08/12/2024 1:30 PM EDT Office Visit [facility] [address] [phone] Jorge Blair MD [address] [phone] Health Maintenance Due Date Last Done Comments Pneumococcal Vaccine: 50+ Ye ars (1 of 2 - PCV) 1973 Colorectal Cancer Screening: Annual FOBT 2003 Colorectal Cancer Screening: Colonoscopy 2003 Colorectal Cancer Screening: Sigmoidoscopy 2003 Influenza Vaccine (Season Ended) 2024 Hepatitis B Vaccine Aged Out No longe r eligible based on patient's age to complete this topic Insurance [place]([id number]) Care Teams Pulp Beater Relationship Specialty Start Date End Date Rashad Daugherty PA-C [address] [place] [address] PCP - General Emergency Generator Mechanic 01/15/24
[2024-07-29 16:31] LABS: Anion Gap 15 (12-20); Blood Urea Nitrogen 40 mg/dL (9-16); Calcium 9.4 mg/dL (8.4-10.2); Carbon Dioxide 24 mmol/L (22-29); Chloride 108 mmol/L (96-108); Estimated Glomerular Filt Rate 35; Phosphorus 4.2 mg/dL (2.7-4.5); Potassium 4.5 mmol/L (3.3-5.1); Sodium 142 mmol/L (135-145)
== END 2024-07-29 13:56 | disposition home or self-care (01) ==
LOC: HO.HMGCLDS 13:55
PROVIDERS: Visit Provider Internal Medicine Nephrology
DX: N18.30 Chronic kidney disease, stage 3 unspecified (principal)
CPT/HCPCS: 36415; 80051; 82310; 82565; 84100; 84520

== ENCOUNTER 2024-08-24 14:04 | Outpatient (AMB) | payer MEDICARE, SELFPAY ==
--- NOTE | 2024-08-24 14:24 | MHC.OFFVIS ---
Intake Visit Reasons: add-on Left UE numbness Intake Note: Pt states Left UE numbness from the elbow down starting about 2 weeks ago when washing his car. Pt states he did get some testing last week that showed new dx of arthritis and his PCP ordered a CT of the Left UE. States he has been easily bruising on the Left UE as well. 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 He complains of pain and numbness in that left upper extremity. 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 He smokes about 4-5 cigarettes daily. He became extremely concerned as he had eaten ice cream and milk shakes over the past 2 weeks. 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 He notes that he has generalized pain and numbness. He now presents for vascular evaluation. [facility] Medical History Anxiety Shoulder pain, left Encounter for screening for lung cancer ETOH abuse Barretts esophagus Normal colonoscopy Tobacco consumption Sleep apnea Hyperlipemia CVA (cerebral vascular accident) TIA (transient ischemic attack) GERD (gastroesophageal reflux disease) HTN (hypertension) Surgical History No pertinent past surgical history Family History Father No problems noted. Mother No problems noted. Social History Housing: House Alcohol intake: never Patient Tobacco Use Status: Current everyday Tobacco user Tobacco use type: Cigar e-Cigarette/Vaping Use: Never Used Current occupational status: retired Cognitive needs: No Hearing needs: No Vision needs: Yes Review of Systems Const All systems reviewed & are unremarkable except as noted in HPI and below Reports no additional complaints ENT Reports Normal hearing present Card Denies chest pain, Denies chest pain at rest, Denies chest pain with activity and Denies pedal edema Resp Denies cough GI Denies abdominal pain Musc Denies abnormal gait, Denies muscle cramps and Denies radiating pain into limb Skin/Breast Denies skin ulcer and Denies wounds Neuro Reports Normal hearing present and Denies abnormal gait Psych Reports no additional complaints Physical Exam Const General: cooperative, healthy appearing and comfortable Orientation/consciousness: oriented to person, oriented to place and oriented to time HEENT Head: Yes normal to inspection Neck Neck: Yes normal visual inspection Carotids: no bruits Chest Chest palpation & inspection: normal inspection of the chest Resp Effort & Inspection: normal respiratory effort and able to speak in complete sentences Auscultation: clear to auscultation bilaterally, no crackles, no rales, no rhonchi and no wheezes Cardio Rate: regular rate Rhythm: regular rhythm Heart sounds: S1 normal heart sound present and S2 normal heart sound present Bruits: no carotid bruits Peripheral pulses: Peripheral pulses 2+ throughout GI Inspection: Yes normal to inspection Skin Wounds: no wounds Hair: normal Neuro General: oriented to person, oriented to place and oriented to time Cranial nerves: Yes CN's II-XII intact bilaterally and Yes Normal hearing present Cognition (Neuro): normal cognition Motor exam (neuro): 5/5 motor strength present throughout Extrem Other: Left upper extremity palpable brachial radial ulnar pulses. In addition has some ecchymosis towards the antecubital fossa. General: No clubbing, No cyanosis and No edema Psych Appearance: grossly normal Mental Status: mental status grossly normal Speech and movement: Normal speech and movement present Assessment & Plan Assessment & Plan (1) Shoulder pain, left: Code(s): M25.512 - Pain in left shoulder Category: Medical Qualifiers: Chronicity: chronic Qualified Code(s): M25.512 - Pain in left shoulder; G89.29 - Other chronic pain Plan: In short his pain appears to be more musculoskeletal in nature. I had to spend a fair amount of time explain the pathophysiology and providing reassurance that this is not arterial in nature. He was in the hopes that an intervention would be performed. I had to explain to him that an intervention needed to be clinically warranted and he does have palpable radial and ulnar pulses. I do not believe that this is the source of his issues. He does have a CAT scan pending. Once again we will see him on a routine basis for his carotids. I do not believe any left upper extremity intervention is warranted at the current time. We did discuss routine risk factor modification including smoking cessation. Thank you for allowing us to assist in his care. If there are any questions or concerns please do not hesitate to contact us Coding Level of Care Code Est Pt Level 3 (99601) Diagnoses Chronic left shoulder pain M25.512; G89.29 Chronicity: chronic
--- OUTSIDE RECORDS SUMMARY | 2024-08-24 16:15 | XMS_ITS | Encounter Summary ---
Author Organization [facility]. Address [address] [facility] [address] [place] [phone] Phone Care Team Providers Care Seaming Machine Operator Name Role Phone Rashad Daugherty PA-C Primary Care Provider [phone] Encounter Details Date Type Department Care Team (Late st Contact Info) Description 08/19/2024 Office Communication [facility]. [address] [phone] Karen Rodriguez [address] [place] [phone] Social History Tobacco Use Types Packs/Day Years Used Date Smoking Tobacco: Never Assessed Sex and Gender Information Value Date Recorded Sex Assigned at Not on file Legal Sex Male 6:24 PM EDT Gender Identity Not on file Sexual Orientation Not on file documented as of this encounter Miscellaneous Notes * Telephone Encounter - Marybeth Govea - 08/20/2024 12:33 PM EDT Us renal order has been sent to [facility]. Spoke to pt and he is aware. * Telephone Encounter - Karen Rodriguez - 08/19/2024 12:37 PM EDT PT walked in looking for info on where U/S will be? Please send it in to a facility and let him know where and when it will be. Call him on [phone]. TY documented in this encounter Plan of Treatment Upcoming Encounters Date Type Department Care Team (Late st Contact Info) Description 12/13/2024 4:00 PM EDT Office Visit [facility] [address] [phone] Jorge Blair MD [address] [phone] documented as of this encounter Visit Diagnoses Not on filedocumented in this encounter Care Teams Seaming Machine Operator Relationship Specialty Start Date End Date Rashad Daugherty PA-C [address] [place] [address] PCP - General Rental Counter Clerk 01/15/24 documented as of this encounter
== END 2024-08-24 15:07 | disposition home or self-care (01) ==
LOC: HO.HVS 14:05
PROVIDERS: PCP Internal Medicine; Visit Provider Surgery Vascular Surgery
DX: M25.512 Pain in left shoulder (principal); G89.29 Other chronic pain
CPT/HCPCS: 99213

== ENCOUNTER → 2024-08-24 14:04 | Outpatient (BNVA) | payer MEDICARE, SELFPAY | PROVIDERS: PCP Internal Medicine; Visit Provider Surgery Vascular Surgery | DX: M25.512 Pain in left shoulder (principal); G89.29 Other chronic pain | CPT/HCPCS: 99212 ==

== ENCOUNTER 2024-11-13 17:58 | Emergency (ER) | payer MEDICARE, SELFPAY ==
--- NOTE | ~2024-11-13 | XR_ITS ---
CLINICAL HISTORY: atraumatic L wrist pain 4 view left wrist Comparison: None provided Findings: Mild-moderate osteoarthritis of the imaged wrists. No acute displaced fracture. No dislocation. Mild periosteal thickening in the reaction of the radial aspect of the distal radius. Vascular calcifications noted. IMPRESSION: Mild-moderate osteoarthritis of the left wrist. This document has been electronically signed by: Joseph Huang MD on 11/13/2024 19:18:13
--- NOTE | ~2024-11-13 | XR_ITS ---
CLINICAL HISTORY: atraumatic L hand pain 3 view left hand Comparison: None provided Findings: Small fracture fragments versus erosive changes of the distal phalanx of the 2nd digit. Soft tissue calcifications noted including distal interphalangeal joints of the 2nd and 3rd digits. Mild osteoarthritis is multifocal, including imaged wrists. Small juxta-articular erosions noted of the 3rd metacarpal phalangeal joint. No dislocation. No radiopaque foreign body. IMPRESSION: 1. Likely old fracture of the tuft of the distal phalanx of the 2nd digit. 2. Mild osteoarthritis is multifocal. 3. Juxta-articular erosions of the 3rd metacarpal phalangeal joint. This document has been electronically signed by: Joseph Huang MD on 11/13/2024 19:16:17
--- NOTE | ~2024-11-13 | US_ITS ---
CLINICAL HISTORY: ? DVT - S P INJURY TO WRIST AND HAND 2024 Venous duplex ultrasound left upper extremity Comparison: None provided Findings: Accessible deep venous segments are fully compressible with normal Doppler color flow and spectral tracings. IMPRESSION: 1. Negative for left upper extremity deep vein thrombosis. This document has been electronically signed by: Joseph Huang MD on 11/13/2024 21:37:54
--- NOTE | ~2024-11-13 | CT_ITS ---
CLINICAL HISTORY: left arm weakness hx CVA [address] head without contrast Comparison: Head CT from 10/16/2019 Findings: No acute intracranial hemorrhage. No midline shift or hydrocephalus. Mild volume loss is generalized. Encephalomalacia involves the right parietal lobe and most likely from old infarction (new compared to 2019). Left temporal parietal junction infarction of the small, old, not significantly changed from comparison. Fluid and mucosal thickening including the paranasal sinuses including opacification of the 1 left dorsal ethmoid air cell. Trace right mastoid effusion. No acute skull fracture. Anterior blunting of the bilateral nasal bones appear old/chronic. IMPRESSION: 1. No acute intracranial abnormality by CT. 2. 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 Additional small old infarction of the left temporoparietal junction. This document has been electronically signed by: Joseph Huang MD on 11/13/2024 21:57:21
[2024-11-13 18:01] VITALS: BP 185/79; PULSE 76; RESP 18; TEMP 37.1; O2SAT 96; BMI 28.9
--- NOTE | 2024-11-13 18:03 | ED_ITS ---
HPI - Extremity Injury (Upper) General Chief Complaint: Extremity Injury, Upper Stated Complaint: left arm/hand numbness no dexterity Time Seen by Provider: 11/13/24 19:38 Source: patient Mode of arrival: ambulatory Limitations: no limitations History of Present Illness HPI narrative: This is a 69 years old the patient comes in complaining of numbness and tingling in the left hand, th. the symptoms started in June when he was washing his car injured his left hand and wrist. But now are getting worse. Patient has a history of CVA 5 years ago with some left arm weakness. Denies any fever chills vomiting. The patient is right-handed MD complaint: injury to: left (months) Related Data Home Medications ?Medication ?Instructions ?Recorded ?Confirmed aspirin 81 mg tablet,delayed 81 mg PO DAILY 02/14/20 1 release flu vacc [id number](65yr up)-PF 240 IM 02/14/20 2 mcg/0.7 mL intramuscular syringe multivitamin 1 tab PO DAILY 02/14/2012/08 dapagliflozin propanediol 5 mg 5 mg PO DAILY 03/23/24 tablet (Farxiga) Previous Rx's ?Medication ?Instructions ?Recorded lisinopril 20 mg tablet 20 mg PO DAILY #90 tabs 12/10 03/31 lisinopril 20 1 tab PO DAILY #90 tabs 06/08 06/30 mg-hydrochlorothiazide 25 mg tablet amlodipine 10 mg tablet 10 mg PO DAILY #90 tabs 08/09 09/29 atorvastatin 80 mg tablet 80 mg PO DAILY #90 tabs 09/29 Allergies Allergy/AdvReac Type Severity Reaction Status Date / Time amoxicillin (AMOXICILLIN) Allergy Unknown RASH Verified 11/13/24 18:06 Review of Systems 2 Constitutional: Constitutional: Reports no additional constitutional complaints Cardiovascular: Cardiovascular: Reports no additional cardiovascular complaints PMFSH Past Medical History Attestation statement: The following information was validated with the patient. Medical History Anxiety Shoulder pain, left Encounter for screening for lung cancer ETOH abuse Barretts esophagus Normal colonoscopy Tobacco consumption Sleep apnea Hyperlipemia CVA (cerebral vascular accident) TIA (transient ischemic attack) GERD (gastroesophageal reflux disease) HTN (hypertension) Surgical History No pertinent past surgical history Family History Family History Father No problems noted. Mother No problems noted. Social History Social History Housing: House Alcohol intake: never Patient Tobacco Use Status: Current everyday Tobacco user Tobacco use type: Cigar e-Cigarette/Vaping Use: Never Used Advance Directives: No Advance Directives Information Provided: No Current occupational status: retired Cognitive needs: No Hearing needs: No Vision needs: Yes Physical Exam 2 Exam: Exam: He looks well is not toxic Vital Signs: Vital Signs: Last Vital Signs Temp 97.6 F 11/13/24 23:34 Pulse 51 11/13/24 23:34 Resp 18 11/13/24 23:34 BP 183/77 H 11/13/24 23:34 Pulse Ox 96 11/13/24 23:34 O2 Del Method Room Air 11/13/24 23:34 BMI result Body Mass Index 28.9 Const: General: cooperative Nutritional Appearance: well nourished O rientation/consciousness: patient oriented x3 HEENT: Head: Yes normal to inspection General nose exam: Normal external nose present Face and sinus: Yes normal facial exam Neck: Neck: Yes normal visual inspection Resp: Effort & Inspection: normal respiratory effort Auscultation: clear to auscultation bilaterally Cardio: Jugular venous distension: no JVD Rate: regular rate Rhythm: r egular rhythm GI: Inspection: Yes normal to inspection Skin: General skin exam: no rashes or lesions noted Neuro: Other: He is awake alert oriented x3 the cranial nerves are intact strength is slightly diminished in the left wrist and hand General: patient oriented x3 Cognition (Neuro): normal cognition Gait exam (Neuro): Normal gait present Motor exam (neuro): no tremor noted and Motor abnormalities not present Course Course Course Narrative: This is a Rapid Medical Examination (RME) performed by Feliciano Chambers PA-C in triage. Full HPI, ROS, assessment and treatment plan per primary provider in the Main ED. Hx: 69 yo M hx of HTN, HLD, etoh abuse, CKD here w/ left wrist pain, numbness, tingling, and difficulty performing tasks w/ his left hand since june 2024. follows outpatient for this, had xrs and CT brain - diagnosed w/ arthritis + carpal tunnel, had corticosteroid injection w/o improvement. referred pt to [facility] - has an appointment at the end of nov however states he can no longer wait. no change in symptoms. hx CVA 5 yrs ago. no longer on AC. on baby aspirin. Plan: xrs Medical Decision Making Medical Decision Making [facility] Narrative: Patient is here with this left hand numbness and weakness dating back in June 2024 in the setting of old CVA with a left residual weakness. We will obtain labs imaging 23:08 workup is now completed ultrasound of the left upper extremity shows no evidence of DVT, head CT shows no new finding old encephalopathy, his blood work is essentially normal and there is no evidence of infection he has no fever. he could have a peripheral neuropathy, I think he can be followed up as outpatient I do not think he needs admission the symptoms have been ongoing for weeks at this point we will discharge the patient home with follow-up with neurologist he is comfortable with the plan of care Differential Diagnosis Differential Diagnoses: The differential diagnosis associated with the presentation includes DVT/carpal tunnel syndrome/peripheral neuropathy/unlikely new stroke the symptoms have been ongoing from June Admission/Observation Consideration of admission/observation: Escalation of care including admission/observation considered Lab Data [facility] Lab Attestation statement: I reviewed the patient's lab results. 11/13/24 19:58 11/13/24 19:58 Labs: Lab Results 11/13/24 Range/Units 19:58 WBC 8.0 (4.8-10.8) X10*3/uL RBC 4.08 L (4.60-5.80) X10*6/uL Hgb 13.8 L (14.0-18.0) g/dl Hct 39.9 L (42.0-52.0) % MCV 97.8 (80.0-98.0) fL MCH 33.8 H (27.0-33.0) pg MCHC 34.6 (31.0-36.0) g/dl RDW 12.9 (11.0-16.0) % Plt Count 187 D (160-400) X10*3/uL MPV 10.5 (9.4-12.4) fL Immature Gran % (Auto) 0.3 (0.0-0.4) % Neut % (Auto) 58.8 (45-73) % Lymph % (Auto) 30.3 (20-40) % [place] % (Auto) 8.8 (2-11) % Eos % (Auto) 1.3 (0-4) % Baso % (Auto) 0.5 (0-2) % Lymph # (Auto) 2.4 (1.2-4.9) X10*3/uL [place] # (Auto) 0.7 (0.1-1.2) X10*3/uL Eos # (Auto) 0.1 (0.0-0.4) X10*3/uL Baso # (Auto) 0.0 (0.0-0.2) X10*3/uL Abs Immat Gran (auto) 0.02 (0.00-0.03) X10*3/uL Absolute Neuts (auto) 4.7 (2.0-8.3) x10*3/uL Absolute Nucleated RBC 0.000 (0.0-0.012) X10*3/uL Nucleated RBC % (auto) 0.0 (0.0-0.2) /100WBC Sodium 142 (135-145) mmol/L Potassium 4.3 (3.3-5.1) mmol/L Chloride 107 (96-108) mmol/L Carbon Dioxide 26 (22-29) mmol/L Anion Gap 13 (12-20) BUN 28 H (9-16) mg/dL Creatinine 1.35 (0.5-1.4) mg/dL Estim Creat Clear Calc 49.3 Estimated GFR 52 Random Glucose 105 (60-115) mg/dL Calcium 9.1 (8.4-10.2) mg/dL Total Bilirubin 0.3 (0.0-1.0) mg/dL AST 40 H (5-37) U/L ALT 51 H (0-40) U/L Alkaline Phosphatase 79 (39-117) U/L Total Protein 6.9 (6.5-8.0) g/dL Albumin 4.0 (3.5-5.0) g/dL Independent Interpretation I performed an independent interpretation of an: Ultrasound and CT Scan (Not acute disease) Interpretation: No DVT Radiology Impression Discussion of test interpretation with radiology: I have reviewed the radiologist's reading. Radiologist Impression: Date of Service: 11/13/24 Procedure(s): US venous duplex UE LT Accession Number(s): [id number] cc: Rashad Daugherty; Kenney Wilson MD~ Reason for Exam: ? DVT - S/P INJURY TO WRIST AND HAND 06/2024 CLINICAL HISTORY: ? DVT - S P INJURY TO WRIST AND HAND 2024 Venous duplex ultrasound left upper extremity Comparison: None provided Findings: Accessible deep venous segments are fully compressible with normal Doppler color flow and spectral tracings. IMPRESSION: 1. Negative for left upper extremity deep vein thrombosis. This document has been electronically signed by: Joseph Huang MD on 11/13/2024 21:37:54 Dictated By: Joseph Huang MD Signed By: <Electronically signed by Joseph Huang MD in OV> 11/13/242137 Independent Historian Clinical information obtained from an independent historian. History obtained from or confirmed by: Spouse Discharge Plan Discharge Clinical Impression: Weakness of left hand Patient Disposition: Home, Self-Care Instructions: Peripheral Neuropathy (ED) Additional Instructions: Follow-up with neurologist please call and make an appointment Prescriptions: No Action lisinopril 20 mg tablet 20 mg PO DAILY Qty: 90 3RF lisinopril-hydrochlorothiazide 20-25 mg tablet 1 tab PO DAILY Qty: 90 3RF amlodipine 10 mg tablet 10 mg PO DAILY Qty: 90 1RF Rx Instructions: schedule next PCP appt for future refills atorvastatin 80 mg tablet 80 mg PO DAILY Qty: 90 3RF Fluzone HighDose Quad 20-21 PF 240 mcg/0.7 mL syringe IM aspirin 81 mg tablet,delayed release (DR/EC) 81 mg PO DAILY multivitamin Tablet 1 tab PO DAILY dapagliflozin propanediol [Farxiga] 5 mg tablet 5 mg PO DAILY Referrals: [facility] [Provider Group] - 11/16/24 Interventions: ED Discharge Assessment Last Done: 11/13/24 23:34 Discharge Date/Time: 11/13/24 23:34 Print Language: Mosotho
[2024-11-13 19:27] VITALS: BP 173/75; PULSE 65; RESP 16; TEMP 36.6; O2SAT 95
--- OUTSIDE RECORDS SUMMARY | 2024-11-13 19:55 | XMS_ITS | Encounter Summary ---
Author Organization [facility] Address [address] [address] Phone Care Team Providers Care Siebel Architect Name Role Phone Rashad Daugherty PA-C Primary Care Provider [phone] Encounter Details Date Type Department Care Team (Late st Contact Info) Description 09/27/2024 Results Follow-Up [facility] [address] [address] Jorge Blair MD [facility] [address] Social History Tobacco Use Types Packs/Day Years Used Date Smoking Tobacco: Never Assessed Sex and Gender Information Value Date Recorded Sex Assigned at Not on file Legal Sex Male 6:24 PM EDT Gender Identity Not on file Sexual Orientation Not on file documented as of this encounter Plan of Treatment Upcoming Encounters Date Type Department Care Team (Late st Contact Info) Description 12/12/2024 Orders Only [facility] [address] [id number] Jorge lBair MD [facility] [address] Stage 3 chronic kidney disease, not otherwise specified (HCC) 12/13/2024 4:00 PM EDT Office Visit [facility] [place] [id number] [address] Jorge Blair MD [address] [facility] [address] [place] [address] documented as of this encounter Visit Diagnoses Not on filedocumented in this encounter Care Teams Siebel Architect Relationship Specialty Start Date End Date Rashad Daugherty PA-C [address] [place] [address] PCP - General Court Officer 01/15/24 documented as of this encounter
--- OUTSIDE RECORDS SUMMARY | 2024-11-13 19:55 | XMS_ITS | Clinical Summary ---
Author Organization [facility] Address [address] [place] [phone] Phone Care Team Providers Care Clinic Office Manager Name Role Phone Rashad Daugherty PA-C Primary Care Provider [phone] Allergies Active Allergy Reactions Criticality Noted Date [...] mouth 1 (one) time each day Active [place]-3 Fatty Acids (FISH OIL ADULT GUMMIES PO) Take by mouth Active Multiple Vitamin (multivitamin) capsule Take 1 capsule by mouth 1 (one) time each day Active Misc Natural Products (YumVs Beet Root-Tart Pimentel) 250-0.5 MG chewable tablet Chew Active Turmeric (QC TUMERIC COMPLEX PO) Take by mouth Active Dapagliflozin Propanediol (Farxiga) 5 MG tablet Take 5 mg by mouth 1 (one) time each day in the morning 30 tablet 3 08/30/2024 Active Active Problems Problem Noted Date Diagnosed Date Gastroesophageal reflux disease 01/15/2024 Hyperlipidemia 01/15/2024 Essential (primary) hypertension 01/15/2024 Overweight 01/15/2024 Cerebrovascular accident 01/15/2024 Carotid artery stenosis 01/15/2024 Encounters Date Type Department Care Team Description 09/27/2024 Results Follow-Up [facility] [address] [address] Jorge Blair MD 08/30/2024 Refill [facility] [address] [address] Marybeth Govea 08/19/2024 Office Communication [facility] [address] [address] Karen Rodriguez from Last 3 Months Social History Tobacco Use Types Packs/Day Years Used Date Smoking Tobacco: Never Assessed Sex and Gender Information Value Date Recorded Sex Assigned at Not on file Legal Sex Male 6:24 PM EDT Gender Identity Not on file Sexual Orientation Not on file Last Filed Vital Signs Vital Sign Reading Time Taken Comments Blood Pressure 110/50 08/12/2024 1:01 PM EDT Pulse 55 08/12/2024 1:01 PM EDT Temperature - - Respiratory Rate - - Oxygen Saturation - - Inhaled Oxygen Concentration - - Weight 87.1 kg (192 lb) 08/12/2024 1:01 PM EDT Height - - Body Mass Index - - Plan of Treatment Upcoming Encounters Date Type Department Care Team (Late st Contact Info) Description 12/12/2024 Orders Only [facility] [address] [address] Jorge Blair MD [address] [address] Stage 3 chronic kidney disease, not otherwise specified (HCC) 12/13/2024 4:00 PM EDT Office Visit [facility] [address] [address] Jorge Blair MD [address] [address] Health Maintenance Due Date Last Done Comments Pneumococcal Vaccine: 50+ Ye ars (1 of 2 - PCV) 1973 Colorectal Cancer Screening: Annual FOBT 2003 Colorectal Cancer Screening: Colonoscopy 2003 Colorectal Cancer Screening: Sigmoidoscopy 2003 Influenza Vaccine (#1) 2024 Hepatitis B Vaccine Aged Out No longe r eligible based on patient's age to complete this topic Procedures Procedure Name Priority Date/Time Associated Diagnosis Comments US RENAL LIMITED Routine 09/24/2024 11:5 1 AM EDT Stage 3 chronic kidney disease, not otherwise specified (HCC) URINALYSIS WITH MICROSCOPIC Routine 08/16/2024 11:50 AM EDT Stage 3 chronic kidney disease, not otherwise specified (HCC) URINE ALBUMIN / CREATININE RATIO Routine 08/16/2024 11:50 AM EDT Stage 3 chronic kidney disease, not otherwise specified (HCC) RENAL FUNCTION PANEL Routine 08/16/2024 11:50 AM EDT Stage 3 chronic kidney disease, not otherwise specified (HCC) MICROSCOPIC EXAMINATION - DO NOT USE Routine 08/16/2024 11:50 AM EDT from Last 3 Months Results * Ultrasound renal limited (09/24/2024 11:51 AM EDT) Anatomical Region Laterality Modality Abdomen, Pelvis Ultrasound Jorge Blair MD CV VASCULAR PROCEDURES Final Res ult * Microscopic Examination (08/16/2024 11:50 AM EDT) WBC, Urine None seen 0 - 5 /hpf [facility] RBC, Urine None seen 0 - 2 /hpf [facility] Squamous Epithelial, Urine None seen 0 - 10 /hpf [facility] Casts None seen None seen /lpf [facility] Bacteria, Urine None seen None seen/Few [facility] 08/16/2024 11:5 0 AM EDT 08/16/2024 us Jorge Blair MD LAB MICROBIOLOGY - GENERAL ORDER RAFAEL Final Result Performing Organization Address [facility]/ZIP Co de Phone Number [facility] [address] [place] [address] * urine albumin / creatinine ratio (08/16/2024 11:50 AM EDT) Creatinine, Ur 120.4 Not Estab. mg/dL [facility] Albumin, Urine 25.3 Not Estab. ug/mL [facility] Albumin/Creatin ine Ratio 21 0 - 29 mg/g creat [facility] Comment: Normal: 0 - 29 Moderately increased: 30 - 300 Severely increased: >300 Urine Urine specimen obtained by clean catch procedure / Unknown 08/16/2024 11:50 AM EDT 08/16/2024 us Jorge Blair MD LAB URINE ORDERABLES Final Resul t Performing Organization Address City/[facility]/ZIP Co de Phone Number [facility] [address] [place] [address] * (ABNORMAL) Urinalysis with microscopic exam OUTSIDE OFFICE (08/16/2024 11:50 AM EDT) Specific [place], Urine 1.019 1.005 - 1.030 [facility] [phone] pH Urine 6.0 5.0 - 7.5 [facility] [phone] Color, Urine Yellow Yellow [facility] [phone] Appearance Urine Clear Clear [facility] [place] [phone] WBC Esterase Urine Negative Negative [facility] [phone] Protein, Ur Trace Negative/Tra ce [facility] [phone] Glucose, Ur 2+(A) Negative [facility] Ketones, Urine Negative Negative [facility] [place] Blood Urine Negative Negative [facility] Bilirubin Urine Negative Negative [facility] [place] [phone] Urobilinogen Urine 0.2 0.2 - 1.0 mg/dL [facility] Nitrite, Urine Negative Negative [facility] Microscopic Examination Comment [facility] Comment:Microscopic follows if indicated. Other Microsc. Observations See below: [facility] Comment:Microscopic was william cated and was performed. Urine Urine specimen obtained by clean catch procedure / Unknown 08/16/2024 11:50 AM EDT 08/16/2024 us Jorge Blair MD LAB URINE ORDERABLES Final Resul t [facility] [address] [place] [address] * (ABNORMAL) Renal funtion panel (08/16/2024 11:50 AM EDT) Glucose 85 70 - 99 mg/dL [facility] BUN 29(H) 8 - 27 mg/dL [facility] Creatinine 1.63(H) 0.76 - 1.27 mg/dL [facility] eGFR CKD-EPI CR 2020 45(L) >59 mL/min/1.7 3 [facility] BUN/Creatinine Ratio 18 10 - 24 [facility] Sodium 142 134 - 144 mmol/L [facility] Potassium 4.4 3.5 - 5.2 mmol/L [facility] Chloride 106 96 - 106 mmol/L [facility] Bicarbonate (CO2) 20 20 - 29 mmol/L [facility] Calcium 9.4 8.6 - 10.2 mg/dL [facility] Albumin 4.0 3.9 - 4.9 g/dL [facility] Phosphorus 3.1 2.8 - 4.1 mg/dL [facility] Blood Venous blood / Unknown 08/16/2024 11:50 AM EDT 08/16/2024 us Jorge Blair MD LAB BLOOD ORDERABLES Final Resul t [facility] [address] [place] [address] from Last 3 Months [facility][id number] Care Teams Clinic Office Manager Relationship Specialty Start Date End Date Rashad Daugherty PA-C [address] [place], [place] [phone] PCP - General Jig Inspector 01/15/24
[2024-11-13 20:05] LABS: MANUAL DIFF FLAG NO
[2024-11-13 20:08] LABS: Hematocrit 39.9 % (42.0-52.0); Hemoglobin 13.8 g/dl (14.0-18.0); Imm Gran Abs Auto 0.02 X10*3/uL (0.00-0.03); Imm Gran Pct Auto 0.3 % (0.0-0.4); Lymphocytes Absolute Auto 2.4 X10*3/uL (1.2-4.9); Mean Corpuscular HGB Conc 34.6 g/dl (31.0-36.0); Mean Corpuscular Hemoglobin 33.8 pg (27.0-33.0); Mean Corpuscular Volume 97.8 fL (80.0-98.0); NRBC Abs Auto 0.000 X10*3/uL (0.0-0.012); NRBC Pct Auto 0.0 /100WBC (0.0-0.2); Platelet Count 187 X10*3/uL (160-400); Red Blood Count 4.08 X10*6/uL (4.60-5.80); White Blood Count 8.0 X10*3/uL (4.8-10.8)
[2024-11-13 20:25] LABS: Alanine Aminotransferase 51 U/L (0-40); Albumin Level 4.0 g/dL (3.5-5.0); Alkaline Phosphatase 79 U/L (39-117); Anion Gap 13 (12-20); Aspartate Amino Transferase 40 U/L (5-37); Blood Urea Nitrogen 28 mg/dL (9-16); Calcium 9.1 mg/dL (8.4-10.2); Carbon Dioxide 26 mmol/L (22-29); Chloride 107 mmol/L (96-108); Creatinine Clr Calc Pharmacy 49.3; Estimated Glomerular Filt Rate 52; Potassium 4.3 mmol/L (3.3-5.1); Sodium 142 mmol/L (135-145); Total Protein 6.9 g/dL (6.5-8.0)
[2024-11-13 23:21] VITALS: BP 183/77; PULSE 51; RESP 18; TEMP 36.4; O2SAT 96
[2024-11-13 23:34] VITALS: BP 183/77; PULSE 51; RESP 18; TEMP 36.4; O2SAT 96
== END 2024-11-13 23:34 | disposition home or self-care (01) ==
PROVIDERS: Emergency Provider Emergency Medicine; PCP Physician Assistant Medical
DX: R20.0 Anesthesia of skin (principal); R42 Dizziness and giddiness; Z86.73 Personal history of transient ischemic attack (TIA), and cerebral infarction without residual deficits
CPT/HCPCS: 36415; 70450; 73110; 73130; 80053; 85025; 93971; 99283; 99284

== ENCOUNTER → 2024-11-13 18:03 | Outpatient (BNV) | payer MEDICARE, SELFPAY | PROVIDERS: Emergency Provider Emergency Medicine; PCP Physician Assistant Medical; Visit Provider Radiology Neuroradiology | DX: R20.2 Paresthesia of skin (principal); M79.602 Pain in left arm; M79.642 Pain in left hand; M19.032 Primary osteoarthritis, left wrist | CPT/HCPCS: 70450; 73110; 73130; 93971 ==

== ENCOUNTER 2025-01-27 13:10 | Outpatient (RCR) | payer MEDICARE, SELFPAY ==
--- NOTE | 2025-01-24 14:56 | MHC.OT.EP ---
[facility] Office [address] [facility] [phone] F: [phone] F: [phone] Occupational Therapy Plan of Care Patient Name: Nicholas Isidro Date of Evaluation: 01/21/25 Diagnosis: L hand weakness Pain Location: pt denies pain Pain Score: Pain Scale Used: Aggravating Factors: Alleviating Factors: none reported Assessment: Pt is a 70 yr old R hand dominant male who reports washing his car in September when he realized his L hand was not moving the way it was supposed too and he felt fatigue and weakness w/ the use of his L hand. Pt was seen by his primary care and then was evaluated for a stroke (pt had a TIA a few years back) He reports having an EMG which was negative as well as an MRI @ [facility] but pt. has not received the results ; he has a consultation w/ neuro but not until March (he ill try to retrieve his MRI results). He presents today w/ full ROM, but has a delayed response w/ extension, flexion, and abduction of his digits. 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 He is constantly working on house projects and reports his L hand is goofy . Pt would benefit form skilled OT therapy to address the weakness and function of his L hand and wrist to increase the use of his L hand for perfroming ADLs. 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 Thank you once again for your referral.
== END 2025-02-18 15:10 | disposition home or self-care (01) ==
LOC: HO.OT 13:10
PROVIDERS: PCP Physician Assistant Medical; Visit Provider Physician Assistant
DX: M79.642 Pain in left hand (principal); R53.1 Weakness
CPT/HCPCS: 97110; 97165